=== PATIENT | male | born 1985 | race Hispanic/Latino ===

== ENCOUNTER 2020-07-06 12:45 | Emergency (ER) | payer SELFPAY ==
[2020-07-06] MEDS ORDERED: ERYTHROMYCIN O3.5 GM OD (13:56)
[2020-07-06 14:05] VITALS: BP 133/74
== END 2020-07-06 14:05 | disposition home or self-care (01) | DRG 125 ==
LOC: ED 12:45
DX: S05.01XA Injury of conjunctiva and corneal abrasion without foreign body, right eye, initial encounter (principal); X58.XXXA Exposure to other specified factors, initial encounter; Y93.89 Activity, other specified; Y92.63 Factory as the place of occurrence of the external cause; Y99.0 Civilian activity done for income or pay

== ENCOUNTER 2022-03-07 12:45 | Emergency (ER) | payer SELFPAY ==
[2022-03-07] VITALS (17 sets, daily range): BP systolic 113–146; BP diastolic 52–97
[~2022-03-07] VITALS: Ht 175.3 cm; Wt 72.0 kg
[~2022-03-07 12:45] MED LIST: ERYTHROMYCIN O3.5 GM OD
[2022-03-07] MEDS ORDERED: PEPCID20 MG PO (13:07)
[2022-03-07 13:21] LABS: BASO% 1.1 % (0-3); HEMATOCRIT 44.4 % (39.0-50.0); HEMOGLOBIN 15.3 g/dl (14.0-18.0); IMMATURE GRANULOCYTES 0.4 % (0.0-5.0); LYMPH% 10.2 % (15-41); MEAN CELL VOLUME 93.5 fL CALC (80.0-100.0); MEAN CORPUSCULAR HGB 32.2 pG CALC (26.0-32.0); MEAN CORPUSCULAR HGB CONC 34.5 g/dL CAL (32.0-36.0); MONO% 6.2 % (2-13); NEUT# 4.68 thou/uL (1.82-7.42); NEUT% 82.1 % (42-76); RED BLOOD COUNT 4.75 mill/uL (4.70-6.10); RED CELL DISTRI WIDTH 12.6 % (11.5-15.5)
[2022-03-07 13:32] LABS: ALBUMIN 5.5 g/dL (3.2-5.0); ALKALINE PHOSPHATASE 119 u/l (38-126); ANION GAP 24 (6-22 (CALC)); BILIRUBIN, TOTAL 0.9 mg/dL (0.0-1.4); BUN 10 mg/dL (9-20); BUN/CREATININE RATIO 12 (12-20 (CALC)); CARBON DIOXIDE 25 mmol/l (22-30); CHLORIDE 99 mmol/l (95-108); CREATININE 0.8 mg/dL (0.7-1.3); ETHYL ALCOHOL 167 mg/dl (0-30); GFR FOR AFR.AMER. > 60 ML/MIN (>=60 (CALC)); GFR OTHER RACES > 60 ML/MIN (>=60 (CALC)); LIPASE 96 u/l (23-300); POTASSIUM 3.7 mmol/l (3.5-5.1); SGOT/AST 274 u/l (17-59); SODIUM 144 mmol/l (137-146); TOTAL PROTEIN 9.7 g/dL (6.3-8.2)
[2022-03-07] MEDS ORDERED: PROTONIX40 M2 PO (15:29)
== END 2022-03-07 15:54 | disposition home or self-care (01) | DRG 392 ==
LOC: ED 12:45
PROVIDERS: Family Medicine
DX: R11.2 Nausea with vomiting, unspecified (principal); F10.20 Alcohol dependence, uncomplicated; Y90.6 Blood alcohol level of 120-199 mg/100 ml
CPT/HCPCS: S0164

== ENCOUNTER 2023-09-12 19:24 | Emergency (ER) | payer SELFPAY ==
[~2023-09-12] VITALS: Ht 165.1 cm; Wt 68.0 kg
[~2023-09-12 19:24] MED LIST changes: +PEPCID20 MG PO; +PROTONIX40 M2 PO
[2023-09-12] MEDS ORDERED: KETOROLAC TROMETHAMINE 30 MG/ML SDV IM ONE (19:55)
[2023-09-12] MEDS ORDERED: ACETAMINOPHEN 500 MG TAB PO ONE (19:55)
[2023-09-12] MEDS ORDERED: NAPROXEN500 MG PO (22:26)
[2023-09-12 22:38] VITALS: BP 111/72
== END 2023-09-12 22:43 | disposition home or self-care (01) | DRG 605 ==
LOC: ED 19:24
DX: S80.11XA Contusion of right lower leg, initial encounter (principal); W18.30XA Fall on same level, unspecified, initial encounter; Y93.66 Activity, soccer